=== PATIENT | female | born 1980 | race Caucasian/White ===

== ENCOUNTER 2024-08-23 09:24 | Day surgery (SDC) | payer OTHER, SELFPAY ==
--- NOTE | 2024-08-23 10:38 | ITS.CL.IMPLP ---
[employer] - Implant Loop
Implant Loop
Procedure Report:
Procedure: Insertion of Loop Recorder.�
43 years old woman with recurrent highly symptomatic palpitations and negative exhaustive work up is recommended an ILR placement.
Date of the procedure: 08/23/24
Procedure Physician: Tyler Cade MD [facility]
Indication: Arrhythmia � suspected SVT vs atrial fibrillation.
Description of the procedure:
Patient was brought to the holding area after informed consent was obtained from the patient. The time out was performed immediately before the procedure.
The left parasternal chest area was prepped and draped in sterile fashion with chlorhexidine prep x 3 times. Lidocaine 1% was injected subcutaneously for local anesthesia. The loop recorder was tunneled and then injected into the subcutaneous
tissue. The tunneling tool was removed leaving the loop recorder in place. The dermis was closed with 4-o monocryl suture followed by steristrips and a pressure Tegaderm dressing was placed. There were no immediate complications.
Post procedure, the device was interrogated and showed good detectable P and R waves.
There were no immediate complications.
Device:
[employer]; Model: LNQ22; Serial #:[id number]
R wave amplitude: 0.4 mV
Final Programming:
��������������� Tachycardia Detection: >182 bpm for 16 beats
��������������� Bradycardia Detection: 30 bpm for 12 beats, Asystole for 5 seconds.
��������������� Atrial fibrillation detection: On with > 10 min duration
Conclusion:
Successful insertion of loop recorder.
Recommendation:
Routine post-insert loop care.
cc: Dr. Fritz Burrows
== END 2024-08-23 11:00 | disposition home or self-care (01) ==
LOC: CATH 09:24
PROVIDERS: ATTENDING PHYSICIAN Internal Medicine Cardiovascular Disease; FAMILY PHYSICIAN Family Medicine; OTHER PHYSICIAN Internal Medicine Cardiovascular Disease
DX: Z09 Encounter for follow-up examination after completed treatment for conditions other than malignant neoplasm (principal); R00.2 Palpitations; Z79.899 Other long term (current) drug therapy
CPT/HCPCS: 33285; C1764

== ENCOUNTER 2024-09-06 07:43 | Day surgery (SDC) | payer OTHER, SELFPAY ==
[2024-09-06] VITALS (8 sets, daily range): BP systolic 99–129; BP diastolic 68–92; BMI 22.1
[2024-09-06 09:29] LABS: Urine Albumin Negative (Neg - Trace); Urine Bilirubin Negative (Negative); Urine Character Clear (Clear); Urine Color Yellow; Urine Glucose Negative (Negative); Urine Ketone Negative (Negative); Urine Leukocyte 3+ (Negative); Urine Nitrite Negative (Negative); Urine Occult Blood 2+ (Negative); Urine Specific Gravity 1.005 (<1.030); Urine Urobilinogen Negative (Neg - 1+)
[2024-09-06 12:32] LABS: Urine White Cell 30-40 /HPF (0-5)
[2024-09-06 12:34] LABS: Urine Amorphous Seen
[2024-09-06] MEDS: TYLENOL 650 MG PO (14:15)
--- NOTE | 2024-09-06 15:40 | ITS.CL.IMPLP ---
Pl[employer] - Implant Loop
Implant Loop
Procedure Report:
Procedure: Extraction of Loop Recorder.
Date of the procedure: 09/05/24
Procedure Physician: Tyler Cade MD [facility]
Indication: pain in the ILR location. Not interested in repositioning. �
Description of the procedure:
Patient was brought to the holding area after informed consent was obtained. The time out was performed immediately before the procedure.
The left parasternal chest area was prepped and draped in sterile fashion with chlorahexidine prep x 3 times. Lidocaine 1% was injected subcutaneously for local anesthesia. The loop recorder was palpated and the location was identified. An incision
was made at the previous insertion location. The blunt dissection was done to identify the location of the ILR. The capsule was cut and the ILR was pulled out of the capsule. The dermis was closed with 4-0 Monocryl sutures and steristrips and a
pressure Tegaderm dressing was placed.
There were no immediate complications.
Patient can be discharged home.
Explanted device:
[employer]; Model: LNQ22; Serial #:[id number]
����������� -implanted on 08/23/24; explanted on 09/06/24
Conclusion:
Successful removal of the loop recorder.
== END 2024-09-06 15:01 | disposition home or self-care (01) ==
LOC: CATH 07:43
PROVIDERS: Nurse Practitioner Adult Health; ATTENDING PHYSICIAN Internal Medicine Cardiovascular Disease; FAMILY PHYSICIAN Family Medicine; OTHER PHYSICIAN Internal Medicine Cardiovascular Disease
DX: Z09 Encounter for follow-up examination after completed treatment for conditions other than malignant neoplasm (principal); I47.10 Supraventricular tachycardia, unspecified; R42 Dizziness and giddiness; F41.9 Anxiety disorder, unspecified; Z82.49 Family history of ischemic heart disease and other diseases of the circulatory system
CPT/HCPCS: 33286; 81003; 81015